=== PATIENT | male | born 1960 | race Caucasian/White ===

== ENCOUNTER 2024-08-21 10:20 | Outpatient (RCR) | payer OTHER, SELFPAY ==
[2024-08-21 11:07] LABS: Creatinine* 0.6 mg/dL (0.5-1.5); Est. Creatinine Clearance* 84.48; Estimated Glomerular Filt Rate 106 ml/min
== END 2025-02-17 23:59 | disposition home or self-care (01) ==
LOC: CCIC 10:20
PROVIDERS: PCP Family Medicine; Visit Provider Clinical Nurse Specialist
DX: C61 Malignant neoplasm of prostate (principal)
CPT/HCPCS: 36415; 82565; 99211

== ENCOUNTER 2024-08-21 10:28 | Outpatient (CLI) | payer OTHER, SELFPAY | END 2024-08-21 10:29 | disposition home or self-care (01) | PROVIDERS: PCP Family Medicine; Visit Provider Physician Assistant | DX: C61 Malignant neoplasm of prostate (principal) | CPT/HCPCS: 72195 ==